=== PATIENT | female | born 1985 ===

== ENCOUNTER 2017-06-27 21:43 | Inpatient (IN) | payer MEDICARE, MEDICAID ==
[2017-06-27 21:43] VITALS: BMI 30.9
--- NOTE | 2017-06-27 22:03 | C.PDOC ---
History Of Present Illness Patient presents to the ER with a complaint of chest pain and palpitations that began today. Patient states she felt her heart beat was irregular. Patient is currently speaking in complete sentences; denies SOB, fever, chills, nausea, or vomiting. Time Seen by Provider: 06/27/17 22:03 Chief Complaint (Nursing): Chest Pain History Per: Patient History/Exam Limitations: no limitations Onset/Duration Of Symptoms: Hrs Current Symptoms Are (Timing): Still Present Severity: Mild Pain Scale Rating Of: 4 Associated Symptoms: denies: Nausea, Dyspnea, Diaphoresis, Syncope Modifying Factors: None Exacerbating Factors: None Alleviating Factors: None Recent travel outside of the [place]: No Past Medical History Reviewed: Historical Data, Nursing Documentation, Vital Signs Vital Signs: Last Vital Signs Temp 97.8 F 06/27/17 21:55 Pulse 74 06/27/17 21:55 Resp 16 06/27/17 21:55 BP 162/108 H 06/27/17 21:55 Pulse Ox 100 06/27/17 22:37 - Medical History PMH: CAD (h/o SVT), Cardia Arrhythmia, CVA, HTN, Hyperlipidemia, Chronic Kidney Disease Surgical History: - [facility] INJECT/INFUSE NEC (06/25/14) LEFT HEART CARDIAC CATH (08/28/14) LT HEART ANGIOCARDIOGRAM (08/28/14) Family History: States: No Known Family Hx - Social History Hx Tobacco Use: No Hx Alcohol Use: No Hx Substance Use: No - Immunization History Hx Tetanus Toxoid Vaccination: No Hx Influenza Vaccination: No Hx Pneumococcal Vaccination: No Review Of Systems Constitutional: Negative for: Fever, Chills Cardiovascular: Positive for: Chest Pain, Palpitations Respiratory: Negative for: Shortness of Breath Gastrointestinal: Negative for: Nausea, Vomiting Genitourinary: Negative for: Dysuria Musculoskeletal: Negative for: Back Pain Skin: Negative for: Rash Neurological: Negative for: Weakness Psych: Negative for: Anxiety Physical Exam - Physical Exam Appears: Non-toxic Skin: Warm, Dry Head: Normacephalic Eye(s): bilateral: Normal Inspection, PERRL, EOMI Oral Mucosa: Moist Neck: Trachea Midline, Supple Chest: Symmetrical, No Tenderness Cardiovascular: Rhythm Regular, No Murmur Respiratory: No Rales, No Rhonchi, No Wheezing Gastrointestinal/Abdominal: Soft, No Tenderness Back: No CVA Tenderness Extremity: Normal ROM Extremity: Bilateral: Atraumatic, No Pedal Edema, Normal Color And Temperature Pulses: Left Dorsalis Pedis: Normal, Right Dorsalis Pedis: Normal Neurological/Psych: Oriented x3, Normal Speech, Normal Cognition Gait: Steady ED Course And Treatment - Laboratory Results Result Diagrams: 06/27/17 22:23 06/27/17 22:23 ECG: Interpreted By Me, Viewed By Me ECG Rhythm: Sinus Rhythm (74), R BBB, Nonspecific Changes (lahb) O2 Sat by Pulse Oximetry: 100 Pulse Ox Interpretation: Normal Progress Note: EKG, blood work, CXR, and urinalysis ordered. IV fluids administered. Disposition Discussed With Dr.: Marichuy Willis Comment: accepted the pt on his service and took over the care at 11:28PM Doctor Will See Patient In The: Hospital Counseled Patient/Family Regarding: Studies Performed, Diagnosis - Disposition Disposition: HOSPITALIZED Disposition Time: 23:28 Condition: FAIR Forms: [facility] (Fijian) - POA Present On Arrival: None - Clinical Impression Clinical Impression: Chest pain, Palpitations - Scribe Statement The provider has reviewed the documentation as recorded by the Scribe Zander Esteban All medical record entries made by the Scribe were at my direction and personally dictated by me. I have reviewed the chart and agree that the record accurately reflects my personal performance of the history, physical exam, medical decision making, and the department course for this patient. I have also personally directed, reviewed, and agree with the discharge instructions and disposition. Decision To Admit - Pt Status Changed To: Hospital Disposition Of: Observation - . Bed Request Type: Telemetry Admitting Physician: Marichuy Willis Patient Diagnosis: Chest pain, Palpitations
[2017-06-27] MEDS ORDERED: Sodium Chloride 0.9% 1,000 ML IV ONE (22:14)
[2017-06-27 22:30] LABS: BASO % 0.7 % (0.0-2.0); EOS % 0.5 % (0.0-4.0); HEMATOCRIT 34.1 % (34.0-47.0); LYMPH # 0.9 K/uL (1.0-4.3); LYMPH % 26.5 % (20.0-40.0); MEAN CELL VOLUME 82.4 fL (81.0-99.0); MEAN CORPUSCULAR HEMOGLOBIN 26.7 pg (27.0-31.0); MEAN CORPUSCULAR HGB CONC 32.4 g/dL (33.0-37.0); MEAN PLATELET VOLUME 8.4 fL (7.2-11.7); MONO # 0.3 K/uL (0.0-0.8); MONO % 8.7 % (0.0-10.0); RED CELL DISTRIBUTION WIDTH 15.1 % (11.5-14.5); WHITE BLOOD COUNT 3.4 K/uL (4.8-10.8)
[2017-06-27 22:37] LABS: CHLORIDE 105 mmol/L (98-107); INR 0.9
[2017-06-27 22:38] LABS: POTASSIUM 3.4 mmol/L (3.6-5.2); SODIUM 138 mmol/L (132-148)
[2017-06-27 22:40] LABS: ALKALINE PHOSPHATASE 73 U/L (38-126); AST/SGOT 35 U/L (14-36); BILIRUBIN,TOTAL 0.6 mg/dL (0.2-1.3); BLOOD UREA NITROGEN 11 mg/dL (7-17); CARBON DIOXIDE 23 mmol/L (22-30); GFR AFRICAN-AMERICAN > 60; TOTAL PROTEIN 6.7 g/dL (6.3-8.3)
[2017-06-27 22:41] LABS: ALT/SGPT 41 U/L (9-52); CALCIUM 8.8 mg/dl (8.6-10.4); GLUCOSE,RANDOM 89 mg/dL (65-105)
[2017-06-27 23:12] LABS: RBC URINE 1 /hpf (0-3); URINE BILIRUBIN NEGATIVE (NEGATIVE); URINE BLOOD 2+ (NEGATIVE); URINE COLOR Straw (YELLOW); URINE GLUCOSE (UA) NORMAL (Normal); URINE KETONE NEGATIVE (NEGATIVE); URINE LEUKOCYTE ESTERASE NEG Leu/uL (Negative); URINE PROTEIN 2+ mg/dL (NEGATIVE); URINE UROBILINOGEN NORMAL mg/dL (0.2-1.0); WBC URINE < 1 /hpf (0-5)
[2017-06-27 23:13] LABS: URINE BACTERIA RARE (<OCC)
[2017-06-28] MEDS: Oxycodone/Acetaminophen 5/325 mg Tab PO SCH ×2 (00:07→06:13)
[2017-06-28 04:43] LABS: BASO % 0.7 % (0.0-2.0); EOS % 1.1 % (0.0-4.0); HEMATOCRIT 33.7 % (34.0-47.0); LYMPH # 1.2 K/uL (1.0-4.3); LYMPH % 35.1 % (20.0-40.0); MEAN CORPUSCULAR HEMOGLOBIN 27.4 pg (27.0-31.0); MEAN CORPUSCULAR HGB CONC 33.1 g/dL (33.0-37.0); MEAN PLATELET VOLUME 8.4 fL (7.2-11.7); MONO # 0.3 K/uL (0.0-0.8); MONO % 9.7 % (0.0-10.0); NRBC % 0.1 % (0.0-2.0); WHITE BLOOD COUNT 3.5 K/uL (4.8-10.8)
[2017-06-28 04:50] LABS: CHLORIDE 108 mmol/L (98-107)
[2017-06-28 04:51] LABS: SODIUM 145 mmol/L (132-148)
[2017-06-28 04:53] LABS: ALKALINE PHOSPHATASE 72 U/L (38-126); ALT/SGPT 37 U/L (9-52); AST/SGOT 31 U/L (14-36); BILIRUBIN,TOTAL 0.5 mg/dL (0.2-1.3); BLOOD UREA NITROGEN 11 mg/dL (7-17); CARBON DIOXIDE 23 mmol/L (22-30); GFR AFRICAN-AMERICAN > 60; GLUCOSE,RANDOM 87 mg/dL (65-105); TOTAL PROTEIN 6.2 g/dL (6.3-8.3)
[2017-06-28 04:54] LABS: CALCIUM 8.8 mg/dl (8.6-10.4)
[2017-06-28] MEDS ORDERED: FENOFIBRATE 54 MG PO SCH (10:00)
[2017-06-28] MEDS ORDERED: Potassium Chloride 20 mEq ER Tab PO ONE (10:00)
[2017-06-28] MEDS ORDERED: HYDROXYCHLOROQUINE SULFATE PO SCH (10:00)
--- NOTE | 2017-06-28 11:36 | CP.PCM.CON ---
<Consuelo Whelan - Last Filed: 06/28/17 12:57> History of Present Illness - History of Present Illness History of Present Illness: Resident Consultation Note for Dr. Gonzalez 31 year old female with past medical history of HTN, lupus, CVA, SVT s/ p ablation, and renal insufficiency presents to the ED with chest pain and palpitations. Patient reports her chest pain had a sudden on set, located at midsternum, pressure like and non radiating. Patient also report to have irregular heart beat while having the chest pain. Patient admits to recent travel to [place] this past weekend, where she drove approximately for 2 hours. Patient denies having diaphoresis, headache, dizziness, fever, chills, shortness of breath, abdominal pain, nausea, vomiting, or diarrhea. Patient was evaluated by Dr. Gonzalez in 2013. She had a stress test which showed stress induced anterior and inferior reversible perfusion defect. Patient also underwent a cardiac cath soon after which showed normal coronaries and normal LV function. PMD: Dr. Willis PMHx: HTN, HLD, lupus, CVA, SVT s/p ablation, and renal insufficiency PSHx: , bone marrow biopsies, renal biopsy Allergy: ASA, ibuprofen Family Hx: Father-arthritis, unknown CAD and recent pacemaker placement Meds: see MAR Review of Systems - Constitutional Constitutional: As Per HPI. absent: Chills, Fever, Weakness - EENT Eyes: As Per HPI. absent: Blurred Vision Ears: As Per HPI. absent: Dizziness Nose/Mouth/Throat: As Per HPI. absent: Epistaxis, Nasal Congestion - Cardiovascular Cardiovascular: As Per HPI, Chest Pain, Rapid Heart Rate. absent: Diaphoresis, Leg Edema, Syncope - Respiratory Respiratory: As Per HPI. absent: Cough, Hemoptysis, Chest Congestion - Gastrointestinal Gastrointestinal: As Per HPI. absent: Diarrhea, Nausea, Vomiting - Genitourinary Genitourinary: As Per HPI. absent: Urinary Frequency, Urinary Hesitance - Musculoskeletal Musculoskeletal: As Per HPI. absent: Numbness, Tingling - Integumentary Integumentary: As Per HPI. absent: Dry Skin, Lesions - Neurological Neurological: As Per HPI. absent: Dizziness, Numbness, Syncope, Weakness - Psychiatric Psychiatric: As Per HPI - Endocrine Endocrine: As Per HPI - Hematologic/Lymphatic Hematologic: As Per HPI Past Patient History - Past Social History Smoking Status: Never Smoked - CARDIAC Hx Cardia Arrhythmia: Yes Hx Hypertension: Yes - PULMONARY Hx Respiratory Disorders: No - NEUROLOGICAL HX Cerebrovascular Accident: Yes (x3) - HEENT Hx HEENT Problems: No - RENAL Hx Chronic Kidney Disease: Yes - ENDOCRINE/METABOLIC Hx Systemic Lupus Erythematosus: Yes - HEMATOLOGICAL/ONCOLOGICAL Hx Blood Disorders: No - INTEGUMENTARY Hx Dermatological Problems: No - MUSCULOSKELETAL/RHEUMATOLOGICAL Hx Falls: No - GASTROINTESTINAL Hx Gastrointestinal Disorders: No - GENITOURINARY/GYNECOLOGICAL Hx Genitourinary Disorders: No - PSYCHIATRIC Hx Psychophysiologic Disorder: No Hx Substance Use: No - SURGICAL HISTORY Hx Surgeries: Yes Hx Cardiac Catheterization: Yes Hx Section: Yes (x1) - ANESTHESIA Hx Anesthesia: Yes Hx Anesthesia Reactions: No Meds Allergies/Adverse Reactions: Allergies Allergy/AdvReac Type Severity Reaction Status Date / Time aspirin Allergy Verified 04/03/16 18:27 ibuprofen [From Motrin] Allergy Verified 04/03/16 18:27 shellfish derived Allergy Verified 06/27/17 21:57 - Medications Medications: Current Medications Clopidogrel Bisulfate (Plavix) 75 mg PO DAILY [facility] Last Admin: 06/28/17 09:41 Dose: 75 mg Fenofibrate (Tricor) 48 mg PO DAILY [facility] Furosemide (Lasix) 20 mg PO DAILY [facility] Last Admin: 06/28/17 09:41 Dose: 20 mg Hydroxychloroquine Sulfate (Plaquenil) 200 mg PO DAILY [facility] Lisinopril (Zestril) 2.5 mg PO DAILY [facility] Last Admin: 06/28/17 09:41 Dose: 2.5 mg Oxycodone/Acetaminophen (Percocet 5/325 Mg Tab) 1 tab PO Q6 PRN PRN Reason: Pain, severe (8-10) Stop: 07/01/17 00:01 Pneumococcal Polyvalent Vaccine (Pneumovax 23 Vaccine) 0.5 ml IM .ONCE ONE Stop: 06/29/17 10:01 Physical Exam - Constitutional Appears: Well, Non-toxic, No Acute Distress - Head Exam Head Exam: ATRAUMATIC, NORMAL INSPECTION - Eye Exam Eye Exam: Normal appearance Pupil Exam: NORMAL ACCOMODATION - ENT Exam ENT Exam: Mucous Membranes Moist - Neck Exam Neck exam: Positive for: Normal Inspection - Respiratory Exam Respiratory Exam: Clear to Auscultation Bilateral, NORMAL BREATHING PATTERN. absent: Respiratory Distress - Cardiovascular Exam Cardiovascular Exam: REGULAR RHYTHM, +S1, +S2 - GI/Abdominal Exam GI & Abdominal Exam: Normal Bowel Sounds, Soft. absent: Tenderness - Extremities Exam Extremities exam: Positive for: normal inspection - Neurological Exam Neurological exam: Alert, Oriented x3 - Psychiatric Exam Psychiatric exam: Normal Affect, Normal Mood - Skin Skin Exam: Normal Color, Warm Results - Vital Signs Recent Vital Signs: Last Vital Signs Temp 98 F 06/28/17 08:18 Pulse 67 06/28/17 08:18 Resp 20 06/28/17 08:18 BP 130/91 H 06/28/17 09:41 Pulse Ox 98 06/28/17 08:18 - Labs Result Diagrams: 06/28/17 04:35 06/28/17 04:35 Labs: Laboratory Results - last 24 hr 06/28/17 06/28/17 04:35 04:35 WBC 3.5 L RBC 4.06 Hgb 11.1 Hct 33.7 L MCV 83.0 MCH 27.4 MCHC 33.1 RDW 15.0 H Plt Count 140 MPV 8.4 Neut % (Auto) 53.4 Lymph % (Auto) 35.1 [place] % (Auto) 9.7 Eos % (Auto) 1.1 Baso % (Auto) 0.7 Neut # 1.9 Lymph # 1.2 [place] # 0.3 Eos # 0.0 Baso # 0.0 Sodium 145 Potassium 3.0 L Chloride 108 H Carbon Dioxide 23 Anion Gap 17 BUN 11 Creatinine 0.7 Est GFR ( Amer) > 60 Est GFR (Non-Af Amer) > 60 Random Glucose 87 Calcium 8.8 Total Bilirubin 0.5 AST 31 ALT 37 Alkaline Phosphatase 72 Total Creatine Kinase 91 CK-MB (Mass) 0.53 Troponin I, Quant 0.0150 Total Protein 6.2 L Albumin 3.1 L Globulin 3.1 Albumin/Globulin Ratio 1.0 Assessment & Plan - Assessment and Plan (Free Text) Assessment: Palpitation -S/P catheter ablation for SVT -Consider outpatient LINQ cardiac monitoring -Follow up TSH and D-dimer Chest pain, resolved -EKG NSR at 74bpm, no acute ST changes -Troponin negative -Cardiac cath in 2013, normal coronaries and normal LV function -Continue plavix -medical management HLD -Continue Tricor HTN -Continue lisinopril Case discussed with attending Dr. Gonzalez <Wilton Gonzalez - Last Filed: 06/28/17 22:39> Meds - Medications Medications: Current Medications Clopidogrel Bisulfate (Plavix) 75 mg PO DAILY [facility] Last Admin: 06/28/17 09:41 Dose: 75 mg Fenofibrate (Tricor) 48 mg PO DAILY [facility] Last Admin: 06/28/17 12:22 Dose: 48 mg Furosemide (Lasix) 20 mg PO DAILY [facility] Last Admin: 06/28/17 09:41 Dose: 20 mg Hydroxychloroquine Sulfate (Plaquenil) 200 mg PO DAILY [facility] Last Admin: 06/28/17 12:22 Dose: 200 mg Lisinopril (Zestril) 2.5 mg PO DAILY [facility] Last Admin: 06/28/17 09:41 Dose: 2.5 mg Oxycodone/Acetaminophen (Percocet 5/325 Mg Tab) 1 tab PO Q6 PRN PRN Reason: Pain, severe (8-10) Stop: 07/01/17 00:01 Last Admin: 06/28/17 21:55 Dose: 1 tab Pneumococcal Polyvalent Vaccine (Pneumovax 23 Vaccine) 0.5 ml IM .ONCE ONE Stop: 06/29/17 10:01 Results - Vital Signs Recent Vital Signs: Last Vital Signs Temp 98.3 F 06/28/17 16:00 Pulse 70 06/28/17 18:00 Resp 18 06/28/17 16:00 BP 128/87 06/28/17 16:00 Pulse Ox 98 06/28/17 16:00 - Labs Result Diagrams: 06/28/17 04:35 06/28/17 04:35 Labs: Laboratory Results - last 24 hr 06/28/17 06/28/17 06/28/17 04:35 04:35 13:47 WBC 3.5 L RBC 4.06 Hgb 11.1 Hct 33.7 L MCV 83.0 MCH 27.4 MCHC 33.1 RDW 15.0 H Plt Count 140 MPV 8.4 Neut % (Auto) 53.4 Lymph % (Auto) 35.1 [place] % (Auto) 9.7 Eos % (Auto) 1.1 Baso % (Auto) 0.7 Neut # 1.9 Lymph # 1.2 [place] # 0.3 Eos # 0.0 Baso # 0.0 D-Dimer, Quantitative 620 H Sodium 145 Potassium 3.0 L Chloride 108 H Carbon Dioxide 23 Anion Gap 17 BUN 11 Creatinine 0.7 Est GFR ( Amer) > 60 Est GFR (Non-Af Amer) > 60 Random Glucose 87 Calcium 8.8 Total Bilirubin 0.5 AST 31 ALT 37 Alkaline Phosphatase 72 Total Creatine Kinase 91 CK-MB (Mass) 0.53 Troponin I, Quant 0.0150 Total Protein 6.2 L Albumin 3.1 L Globulin 3.1 Albumin/Globulin Ratio 1.0 TSH 3rd Generation 06/28/17 13:47 WBC RBC Hgb Hct MCV MCH MCHC RDW Plt Count MPV Neut % (Auto) Lymph % (Auto) [place] % (Auto) Eos % (Auto) Baso % (Auto) Neut # Lymph # [place] # Eos # Baso # D-Dimer, Quantitative Sodium Potassium Chloride Carbon Dioxide Anion Gap BUN Creatinine Est GFR ( Amer) Est GFR (Non-Af Amer) Random Glucose Calcium Total Bilirubin AST ALT Alkaline Phosphatase Total Creatine Kinase CK-MB (Mass) Troponin I, Quant Total Protein Albumin Globulin Albumin/Globulin Ratio TSH 3rd Generation 1.88 Assessment & Plan - Assessment and Plan (Free Text) Assessment: Patient seen and evaluated with the medical assembly For stress test in am as per PMD
[2017-06-28] MEDS: Oxycodone/Acetaminophen 5/325 mg Tab PO PRN (21:55)
[2017-06-29 01:07] VITALS: RESP 20
[2017-06-29] MEDS ORDERED: Aminophylline 25 mg/ml Inj ONE (07:30)
[2017-06-29] MEDS ORDERED: Pneumococcal 23-Valent Vaccine IM ONE (10:00)
--- NOTE | 2017-06-29 11:40 | CARD ---
APPROVED REPORT EKG Measurement Heart [id number] <Conclusion> Normal sinus rhythm Incomplete right bundle branch block Left anterior fascicular block Abnormal ECG
--- NOTE | 2017-06-29 17:22 | CP.PCM.PN ---
Subjective - Date & Time of Evaluation Date of Evaluation: 06/29/17 Time of Evaluation: 17:21 - Subjective Subjective: PT HAD STRESS TEST W DR. LIMA THIS MORNING AND TOLERATED WELL. DISCUSSED WITH DR. LIMA FOR D/C AND HE STILL NEEDS TO REVIEW THE STRESS TEST. PT DISCUSSED THIS WITH THE PT AND SHE IS AWARE. DR. ODONNELL OR FELLOW [facility] REPORT DEVELOPER WILL D/C TOMORROW MORNING IF STRESS TEST NEG AND CLEARED BY CARDIO. NO FURTHER ORDERS AT THIS TIME. Objective - Vital Signs/Intake and Output Vital Signs (last 24 hours): Temp Pulse Resp BP Pulse Ox 98.4 F 80 20 123/93 H 100 06/29/17 15:00 06/29/17 15:00 06/29/17 15:00 06/29/17 15:00 06/29/17 15:00 - Medications Medications: Current Medications Clopidogrel Bisulfate (Plavix) 75 mg PO DAILY [facility] Last Admin: 06/29/17 11:26 Dose: 75 mg Fenofibrate (Tricor) 48 mg PO DAILY [facility] Last Admin: 06/29/17 11:26 Dose: 48 mg Furosemide (Lasix) 20 mg PO DAILY [facility] Last Admin: 06/29/17 11:26 Dose: 20 mg Hydroxychloroquine Sulfate (Plaquenil) 200 mg PO DAILY [facility] Last Admin: 06/29/17 11:26 Dose: 200 mg Lisinopril (Zestril) 2.5 mg PO DAILY [facility] Last Admin: 06/29/17 11:25 Dose: 2.5 mg Oxycodone/Acetaminophen (Percocet 5/325 Mg Tab) 1 tab PO Q6 PRN PRN Reason: Pain, severe (8-10) Stop: 07/01/17 00:01 Last Admin: 06/28/17 21:55 Dose: 1 tab Pneumococcal Polyvalent Vaccine (Pneumovax 23 Vaccine) 0.5 ml IM .ONCE ONE Stop: 06/30/17 10:01 - Labs Labs: 06/28/17 04:35 06/28/17 04:35 PT 10.5 SECONDS (9.7-12.2) 06/27/17 22:23 INR 0.9 06/27/17 22:23 APTT 21 SECONDS (21-34) 06/27/17 22:23
--- NOTE | 2017-06-29 19:02 | CARD ---
APPROVED REPORT Protocol: LEXISCAN Test Type: LEXISCAN STRESS Test Indications: CHEST PAIN Target HR: 189 bpm Resting Heart Rate: 74 bpm Resting Blood Pressure: 124/80mmHg submaximum (85%): 161 bpm TEST SUMMARY [id number]/80.0. INFUSIONDOSE 100:300.00.01.071/.0. [id number]/80.0. PROCEDURE Pharmacologic stress testing was performed using 0.4mg per 5ml of regadenoson given intravenously over 7-10 seconds. POST EXERCISE Reason for Termination: Lexiscan protocol completed Target HR: No Max HR: 71 bpm 55% of Maximum Predicted HR: 189 bpm Exercise duration: 00:30 min:sec, 0 Stage Exercise capacity: 1.0METs Max Blood Pressure: 124/80mmHg Blood Pressure response to exercise: normal resting BP - appropriate response Heart Rate response to exercise: appropriate Chest Pain: No, none Angina index: 0 Arrhythmia: No, none ST Change: No, none Deviation: 0 mm INTERPRETATION Stress EKG Conclusion: Nuclear report to follow EXAM: Myocardial Perfusion REST/STRESS Imaging Protocol The imaging protocol used to acquire images was Rest Tc-99m/stress Tc-99m 1 day Rest Spect myocardial perfusion imaging was performed in supine position 41 minutes following the injection of 13.1 mCi of Tc-99 Myoview. Gated Stress Spect was performed 40 minutes after intravenous 33 mCi Tc-99 Myoview injection. The images were gated to evaluate regional wall motion and calculate ventricular ejection fraction.Images were reconstructed using backfilter projection method in short horizontal and verticle long axis. Spect slices were generated. RESTING DATA EDV91.82puDB9.70L/min1/3 Pk. Filling Rate1.01EDV/sec LV Time to Pk. Filling Zgvt724.71msec ESV22.00mlMyocardial Xazb470.00gLV Time to Pk. Ejection Qbod296.56msec Pk. Fill Rate2.54EDV/secAv. Heart Rate67.00bpm EF76.00%Pk. Emptying Rate3.33ESV/sec STRESS DATA EDV89.55ueHR1.10L/min ESV18.00mlMyocardial Tpbm328.00g Pk. Fill Rate2.41EDV/sec EF80.00%Pk. Emptying Rate3.04ESV/sec 1/3 Pk. Filling Rate1.46EDV/secRegional WT score at stress:0.00 LV Time to Pk. Filling Rate:213.34msecRegional WM score at stress:0.00 LV Time to Pk. Ejection Rate:177.10msecSummed WT score at stress:0.00 Av. Heart Rate72.00bpmSummed WM score at stress:0.00 LV Perf. Quant 17 Seg. SSS1.00 17 Seg. SRS1.00 17 Seg. SDS1.00 Stress Defect Extent (% LAD)0.00Rest Defect Extent (% LAD)0.00Rev. Defect Extent (% LAD)0.00 Stress Defect Extent (% LCX)7.50Rest Defect Extent (% LCX)5.00Rev. Defect Extent (% LCX)6.30 Stress Defect Extent (% RCA)0.00Rest Defect Extent (% RCA)0.00Rev. Defect Extent (% RCA)0.00 Stress Defect Extent (% CLEO)1.30Rest Defect Extent (% CLEO)0.90Rev. Defect Extent (% CLEO)1.10 Other Information Quality:Good IMPRESSION Normal Myocardial Perfusion exercise stress study Left Ventricle LV Size/Shape: The left ventricle is normal size. LV Function:Left ventricle systolic function is normal. The Ejection Fraction is >70%. Metabolism/Perfusion There are no perfusion/metabolism defects. Conclusion 1. Normal Lexiscan Nuclear stress test.
[2017-06-29] MEDS: Oxycodone/Acetaminophen 5/325 mg Tab PO PRN (22:32)
--- NOTE | 2017-06-29 23:31 | CP.PCM.PN ---
Subjective - Date & Time of Evaluation Date of Evaluation: 06/29/17 Time of Evaluation: 17:35 - Subjective Subjective: Normal stress test Out patient f/u in 4 weeks for further eval Objective - Vital Signs/Intake and Output Vital Signs (last 24 hours): Temp Pulse Resp BP Pulse Ox 98.4 F 72 20 123/93 H 100 06/29/17 15:00 06/29/17 17:00 06/29/17 15:00 06/29/17 15:00 06/29/17 15:00 Intake and Output: 06/29/17 06/30/17 18:59 06:59 Intake Total 500 Balance 500 - Medications Medications: Current Medications Clopidogrel Bisulfate (Plavix) 75 mg PO DAILY [facility] Last Admin: 06/29/17 11:26 Dose: 75 mg Fenofibrate (Tricor) 48 mg PO DAILY [facility] Last Admin: 06/29/17 11:26 Dose: 48 mg Furosemide (Lasix) 20 mg PO DAILY [facility] Last Admin: 06/29/17 11:26 Dose: 20 mg Hydroxychloroquine Sulfate (Plaquenil) 200 mg PO DAILY [facility] Last Admin: 06/29/17 11:26 Dose: 200 mg Lisinopril (Zestril) 2.5 mg PO DAILY [facility] Last Admin: 06/29/17 11:25 Dose: 2.5 mg Oxycodone/Acetaminophen (Percocet 5/325 Mg Tab) 1 tab PO Q6 PRN PRN Reason: Pain, severe (8-10) Stop: 07/01/17 00:01 Last Admin: 06/29/17 22:32 Dose: 1 tab Pneumococcal Polyvalent Vaccine (Pneumovax 23 Vaccine) 0.5 ml IM .ONCE ONE Stop: 06/30/17 10:01 - Labs Labs: PT 10.5 SECONDS (9.7-12.2) 06/27/17 22:23 INR 0.9 06/27/17 22:23 APTT 21 SECONDS (21-34) 06/27/17 22:23
[2017-06-30 02:11] VITALS: TEMP 98.1; O2SAT 98
[2017-06-30] MEDS ORDERED: Pneumococcal 23-Valent Vaccine IM ONE (10:00)
--- NOTE | 2017-06-30 10:01 | CP.PCM.PN ---
Subjective - Date & Time of Evaluation Date of Evaluation: 06/30/17 Time of Evaluation: 10:00 - Subjective Subjective: RN ORTHOPAEDIC NOTES Patient seen today denies any complaints . 31 yr old female with pmhX OF HTN, HLD, lupus, CVA, SVT s/p ablation, and renal insufficiency admitted for chest pain and palpitations troponinx 3 - negative s/p stress test -Normal stress test Dr. Gonzalez cleared for discharge home from cardiology standpoint and f/u in his office in [address] Willis today , cleared for discharge home today an d f/u with Dr. Sultana office in 1 week discharge plan discussed with pateint who understands and agrees with plan Patient instructed to returns to ED if symptoms returns or any other concerning symptoms Objective - Vital Signs/Intake and Output Vital Signs (last 24 hours): Temp Pulse Resp BP Pulse Ox 98.1 F 77 20 116/81 98 06/30/17 07:09 06/30/17 07:09 06/30/17 07:09 06/30/17 07:09 06/30/17 07:09 Intake and Output: 06/30/17 06/30/17 06:59 18:59 Intake Total 500 Balance 500 - Medications Medications: Current Medications Clopidogrel Bisulfate (Plavix) 75 mg PO DAILY [facility] Last Admin: 06/29/17 11:26 Dose: 75 mg Fenofibrate (Tricor) 48 mg PO DAILY [facility] Last Admin: 06/29/17 11:26 Dose: 48 mg Furosemide (Lasix) 20 mg PO DAILY [facility] Last Admin: 06/29/17 11:26 Dose: 20 mg Hydroxychloroquine Sulfate (Plaquenil) 200 mg PO DAILY [facility] Last Admin: 06/29/17 11:26 Dose: 200 mg Lisinopril (Zestril) 2.5 mg PO DAILY [facility] Last Admin: 06/29/17 11:25 Dose: 2.5 mg Oxycodone/Acetaminophen (Percocet 5/325 Mg Tab) 1 tab PO Q6 PRN PRN Reason: Pain, severe (8-10) Stop: 07/01/17 00:01 Last Admin: 06/29/17 22:32 Dose: 1 tab Pneumococcal Polyvalent Vaccine (Pneumovax 23 Vaccine) 0.5 ml IM .ONCE ONE Stop: 06/30/17 10:01 - Labs Labs: PT 10.5 SECONDS (9.7-12.2) 06/27/17 22:23 INR 0.9 06/27/17 22:23 APTT 21 SECONDS (21-34) 06/27/17 22:23
[2017-06-30] MEDS: Oxycodone/Acetaminophen 5/325 mg Tab PO PRN (10:07)
[2017-06-30 10:08] VITALS: BP 130/89
[2017-06-30 10:33] VITALS: PULSE 67
== END 2017-06-30 10:55 | disposition home or self-care (01) | DRG 310 ==
LOC: C.ER 21:43 → C.5T 23:27 → C.9E 23:27 → OBSVTOIN 06-29 17:22
PROVIDERS: ADMIT Internal Medicine; ATTEND Internal Medicine
DX: I47.1 Supraventricular tachycardia (principal); M32.9 Systemic lupus erythematosus, unspecified; I12.9 Hypertensive chronic kidney disease with stage 1 through stage 4 chronic kidney disease, or unspecified chronic kidney disease; N18.9 Chronic kidney disease, unspecified; E78.5 Hyperlipidemia, unspecified; I25.10 Atherosclerotic heart disease of native coronary artery without angina pectoris; Z86.73 Personal history of transient ischemic attack (TIA), and cerebral infarction without residual deficits

== ENCOUNTER 2017-11-29 01:39 | Emergency (ER) | payer MEDICARE, MEDICAID ==
[2017-11-29 01:40] VITALS: BMI 30.9
[2017-11-29] MEDS ORDERED: Sodium Chloride 0.9% 1,000 ML IV ONE (02:01)
--- NOTE | 2017-11-29 02:03 | C.PDOC ---
History Of Present Illness 32 year old female presents to the ER with a complaint of left flank pain that began tonight, associated with dysuria. Denies diarrhea. Patient reports a Hx of kidney stones 14 years ago. Chief Complaint (Nursing): Abdominal Pain History Per: Patient History/Exam Limitations: no limitations Onset/Duration Of Symptoms: Hrs Current Symptoms Are (Timing): Still Present Location Of Pain/Discomfort: Other (Left flank) Radiation Of Pain To:: None Quality Of Discomfort: Unable To Describe Associated Symptoms: Other (Dysuria). denies: Diarrhea Exacerbating Factors: None Alleviating Factors: None Recent travel outside of the [place]: No Past Medical History Reviewed: Historical Data, Nursing Documentation, Vital Signs Vital Signs: Last Vital Signs Temp 98.1 F 11/29/17 04:10 Pulse 78 11/29/17 04:10 Resp 20 11/29/17 04:10 BP 128/90 11/29/17 04:10 Pulse Ox 100 11/29/17 04:10 - Medical History PMH: CAD (h/o SVT), Cardia Arrhythmia, CVA, HTN, Hyperlipidemia, Chronic Kidney Disease Surgical History: - [facility] Procedures INJECT/INFUSE NEC (06/25/14) LEFT HEART CARDIAC CATH (08/28/14) LT HEART ANGIOCARDIOGRAM (08/28/14) Family History: States: Unknown Family Hx - Social History Hx Tobacco Use: No Hx Alcohol Use: No Hx Substance Use: No - Immunization History Hx Tetanus Toxoid Vaccination: No Hx Influenza Vaccination: Yes Hx Pneumococcal Vaccination: No Review Of Systems Constitutional: Negative for: Fever, Chills Gastrointestinal: Negative for: Diarrhea Genitourinary: Positive for: Dysuria Musculoskeletal: Positive for: Back Pain (Left flank pain) Physical Exam - Physical Exam Appears: Non-toxic, Other (Mild distress) Skin: Normal Color, Warm, Dry Head: Atraumatic, Normacephalic Eye(s): bilateral: Normal Inspection Oral Mucosa: Moist Chest: Symmetrical, No Tenderness Cardiovascular: Rhythm Regular Respiratory: Normal Breath Sounds, No Rales, No Rhonchi, No Wheezing Gastrointestinal/Abdominal: Soft, No Tenderness Back: CVA Tenderness (left), Paraspinal Tenderness (Left anterior lumbar) Neurological/Psych: Oriented x3, Normal Speech ED Course And Treatment - Laboratory Results Result Diagrams: 11/29/17 02:15 11/29/17 02:15 O2 Sat by Pulse Oximetry: 100 (Room air) Pulse Ox Interpretation: Normal Progress Note: CT abd/pel, blood work, and urinalysis ordered. IV fluids and tramadol administered. Disposition Counseled Patient/Family Regarding: Diagnosis - Disposition Referrals: [facility] at [facility] [Outside] Nohemi Vinson MD [Staff Provider] - Disposition: HOME/ ROUTINE Disposition Time: 04:38 Condition: STABLE Prescriptions: Ciprofloxacin [Cipro] 1 tab PO BID #14 tab traMADol/Acetaminophen [Ultracet 325 MG-37.5 MG] 1 tab PO Q6 #14 tab Instructions: Urinary Tract Infection in Women (DC), Renal Colic (GEN) Forms: [employer] ([place] Citizen) - POA Present On Arrival: None - Clinical Impression Clinical Impression: Urinary tract infection, Renal colic on left side - Scribe Statement The provider has reviewed the documentation as recorded by the Scribxander Esteban All medical record entries made by the Scribe were at my direction and personally dictated by me. I have reviewed the chart and agree that the record accurately reflects my personal performance of the history, physical exam, medical decision making, and the department course for this patient. I have also personally directed, reviewed, and agree with the discharge instructions and disposition.
[2017-11-29] MEDS ORDERED: Sodium Chloride 0.9% 1,000 ML ONE (02:15)
[2017-11-29 02:24] LABS: BASO % 0.4 % (0.0-2.0); EOS % 0.2 % (0.0-4.0); HEMOGLOBIN 11.5 g/dL (11.0-16.0); LYMPH # 1.2 K/uL (1.0-4.3); LYMPH % 15.8 % (20.0-40.0); MEAN CELL VOLUME 92.8 fL (81.0-99.0); MEAN CORPUSCULAR HEMOGLOBIN 31.7 pg (27.0-31.0); MEAN CORPUSCULAR HGB CONC 34.1 g/dL (33.0-37.0); MEAN PLATELET VOLUME 9.1 fL (7.2-11.7); MONO # 0.6 K/uL (0.0-0.8); MONO % 8.2 % (0.0-10.0); NEUT # 5.6 K/uL (1.8-7.0); NEUT % 75.4 % (50.0-75.0); RBC 3.64 Mil/uL (3.80-5.20); RED CELL DISTRIBUTION WIDTH 14.4 % (11.5-14.5); WHITE BLOOD COUNT 7.4 K/uL (4.8-10.8)
[2017-11-29 02:31] LABS: SQUAMOUS EPITHIAL 6 /hpf (0-5); URINE BILIRUBIN NEGATIVE (NEGATIVE); URINE BLOOD 2+ (NEGATIVE); URINE CLARITY Hazy (Clear); URINE COLOR Yellow (YELLOW); URINE GLUCOSE (UA) NORMAL (Normal); URINE LEUKOCYTE ESTERASE 1+ Leu/uL (Negative); URINE NITRATE NEGATIVE (NEGATIVE); URINE PROTEIN 3+ mg/dL (NEGATIVE); URINE UROBILINOGEN NORMAL mg/dL (0.2-1.0)
[2017-11-29 02:32] LABS: HCG,QUALITATIVE URINE NEGATIVE (NEGATIVE)
[2017-11-29 02:43] LABS: ALB/GLOB RATIO 1.1 (1.0-2.1); ALBUMIN 4.1 g/dL (3.5-5.0); CALCIUM 9.5 mg/dl (8.6-10.4); GFR AFRICAN-AMERICAN > 60; GFR NON-AFRICAN AMERICAN > 60; LIPASE 46 U/L (23-300)
[2017-11-29 02:45] LABS: ALT/SGPT 28 U/L (9-52); AST/SGOT 39 U/L (14-36); BLOOD UREA NITROGEN 14 mg/dL (7-17)
[2017-11-29] MEDS ORDERED: Ciprofloxacin 400mg/200ml D5W 400 MG/200 ML BAG IVPB STA (03:34)
--- NOTE | 2017-11-29 04:27 | CT ---
EXAM: CT Abdomen and Pelvis Without Intravenous Contrast EXAM DATE/TIME: 11/29/2017 2:03 AM CLINICAL HISTORY: 32 years old, female; Pain; Abdominal pain; Additional info: Left flank pain TECHNIQUE: Axial computed tomography images of the abdomen and pelvis without intravenous contrast. All CT scans at this facility use one or more dose reduction techniques, viz.: automated exposure control; ma/kV adjustment per patient size (including targeted exams where dose is matched to indication; i.e. head); or iterative reconstruction technique. Coronal and sagittal reformatted images were created and reviewed. COMPARISON: No relevant prior studies available. FINDINGS: LIMITATIONS: Mild streak/motion artifact. LOWER THORAX: No infiltrate seen in the lung bases. ABDOMEN: LIVER: No acute abnormality of the liver identified. GALLBLADDER AND BILE DUCTS: No CT evidence of acute cholecystitis. No evidence of significant biliary ductal dilatation. PANCREAS: No CT evidence of acute pancreatitis. SPLEEN: No acute abnormality of the spleen identified. ADRENALS: No acute abnormality of the adrenal glands identified. KIDNEYS AND URETERS: Mild stranding of the fat adjacent to the left ureter is seen. No evidence of significant hydroureteronephrosis. No renal or ureteral stones visualized. STOMACH AND BOWEL: Scattered colonic diverticulosis, without evidence of diverticulitis. Otherwise, no significant abnormality of the bowel is identified. No acute abnormality of the stomach or duodenum identified. No evidence of small bowel obstruction. APPENDIX: Appendix is seen, and is within normal limits in appearance. PELVIS: BLADDER: Mild thickening of the bladder wall. REPRODUCTIVE: Bilateral cystic ovarian lesions. The larger, located on the left, measures 5.6 cm, and has an overall CT attenuation of 20 Hounsfield units, mildly higher than expected for simple cyst. This could represent a mildly complex cystic lesion. Followup pelvic ultrasound is recommended for further evaluation, not necessarily on an emergent basis. ABDOMEN and PELVIS: INTRAPERITONEAL SPACE: Small amount of free fluid in the cul-de-sac. This is most likely physiologic in nature. No evidence of free air. BONES/JOINTS: Findings in the femoral heads bilaterally which are highly suspicious for bilateral avascular necrosis. There are curvilinear areas of sclerosis in the femoral heads bilaterally. SOFT TISSUES: No acute abnormality of the visualized soft tissues is seen. VASCULATURE: No evidence of abdominal aortic aneurysm. No evidence of periaortic hemorrhage. LYMPH NODES: No evidence of diffuse lymphadenopathy. IMPRESSION: - Mild stranding of the fat adjacent to the left ureter, with no causative obstructing stone identified or significant hydroureteronephrosis. Findings could be due to a recently passed stone. A left sided urinary tract infection could also have this appearance. Recommend clinical correlation. - Mild bladder wall thickening. This is a nonspecific finding, but can be seen with cystitis. Recommend clinical correlation. - Otherwise, no evidence of significant acute process. - Findings in the femoral heads bilaterally which are highly suspicious for bilateral avascular necrosis. - Bilateral cystic ovarian lesions, the larger, on the left measuring 5.6 cm. See recommendations above. - See above for remaining findings.
[2017-11-29] MEDS ORDERED: Morphine 4 MG/ML VIAL ONE (04:38)
[2017-11-29 05:51] VITALS: BP 129/86; PULSE 81; RESP 17; TEMP 98.3; O2SAT 97
== END 2017-11-29 05:51 | disposition home or self-care (01) ==
LOC: C.ER 01:39
DX: N39.0 Urinary tract infection, site not specified (principal); N20.0 Calculus of kidney
CPT/HCPCS: 74176; 80053; 81001; 83690; 84703; 85025; 87086; 96365; 96375; 99285; J0744; J2270; J7040

== ENCOUNTER 2017-12-01 01:20 | Emergency (ER) | payer MEDICARE, MEDICAID ==
[2017-12-01 01:20] VITALS: BMI 30.9
[2017-12-01 01:56] VITALS: O2SAT 100
[2017-12-01] MEDS ORDERED: Ofloxacin 0.3% Otic Soln AS STA (02:35)
--- NOTE | 2017-12-01 03:21 | C.PDOC ---
History Of Present Illness Patient is a 32 y/o female, with Hx of Lupus and nephrolithiasis, who presents to the ED with complaints of pain in left ear and sore on tongue for the last few days. Patient reports left ear pain subsided with use of Tylenol, but returned today. Upon searching symptoms on Google, patient expressed concern with possibility of oral cancer, prompting visit. Patient notes headache and use of antibiotics for prior kidney stones. No other physical complaints at this time. Time Seen by Provider: 12/01/17 02:22 Chief Complaint (Nursing): ENT Problem History Per: Patient History/Exam Limitations: None Onset/Duration Of Symptoms: Days (few days), Intermittent Episodes Current Symptoms Are (Timing): Still Present Quality (Ear): Pain W/Touch Quality (Mouth/Throat): Other (sore on tongue) Symptoms Have Been: Episodic Anticoagulant/Antiplatlet Use?: No Past Medical History Reviewed: Historical Data, Nursing Documentation, Vital Signs Vital Signs: Last Vital Signs Temp 98.2 F 12/01/17 03:45 Pulse 80 12/01/17 03:45 Resp 16 12/01/17 03:45 BP 124/86 12/01/17 03:45 Pulse Ox 100 12/01/17 03:45 - Medical History PMH: CAD (h/o SVT), Cardia Arrhythmia, CVA, HTN, Hyperlipidemia, Kidney Stones, Chronic Kidney Disease Other PMH: Lupus Surgical History: No Surg Hx, - [facility] Procedures INJECT/INFUSE NEC (06/25/14) LEFT HEART CARDIAC CATH (08/28/14) LT HEART ANGIOCARDIOGRAM (08/28/14) Family History: States: No Known Family Hx - Social History Hx Tobacco Use: No Hx Alcohol Use: No Hx Substance Use: No - Immunization History Hx Tetanus Toxoid Vaccination: No Hx Influenza Vaccination: Yes Hx Pneumococcal Vaccination: No Review Of Systems Constitutional: Negative for: Fever, Chills ENT: Positive for: Ear Pain (left ear pain), Mouth Pain (sore on tongue) Physical Exam - Physical Exam Appears: Well, Non-toxic, No Acute Distress Skin: Normal Color, Warm, No Rash Head: Atraumatic, Normacephalic Eye(s): bilateral: Normal Inspection, PERRL, EOMI Ear(s): Left: Other (tenderness with pushing of the tragus), Right: Normal Oral Mucosa: Moist Tongue: Lesions (<0.5cm aphthous ulcer to left side of tongue) Teeth: Normal Dentition Gingiva: Normal Appearing Throat: Normal, No Erythema, No Exudate Neck: Normal ROM, Supple Chest: Symmetrical, No Tenderness Cardiovascular: No Friction Rub, No Murmur Respiratory: No Rhonchi, No Wheezing Gastrointestinal/Abdominal: Soft, No Tenderness Back: Normal Inspection, No CVA Tenderness Extremity: Normal ROM, No Tenderness, No Swelling Neurological/Psych: Oriented x3, Normal Speech, Normal Motor, Normal Sensation Disoriented To: Place Gait: Steady ED Course And Treatment O2 Sat by Pulse Oximetry: 100 (on RA) Pulse Ox Interpretation: Normal Progress Note: Tylenol and Floxin adminsitered. On re-eval, patient is resting comfortably and stable for discharge. Medication instructions discussed with patient and patient agrees upon discharge. Medical Decision Making Medical Decision Making: The lesion on the side of the tongue is indicative of a canker sore and no evidence or oral cancer at this time. Disposition - Disposition Referrals: Avelino Hummel MD [Staff Provider] - Disposition: HOME/ ROUTINE Disposition Time: 03:32 Condition: GOOD Additional Instructions: Follow up with the medical doctor within 1-2 days without fail. Return if worsened. Prescriptions: Acetaminophen [Tylenol] 325 mg PO Q6 PRN #30 tab PRN Reason: Pain, Mild (1-3) Ciprofloxacin/Hydrocortisone [Cipro Hc Otic Suspension] 4 drop BID #10 ml Instructions: Otitis Externa (ED) Forms: [employer] ([place]) - Clinical Impression Clinical Impression: Otitis externa, Canker sore - Scribe Statement The provider has reviewed the documentation as recorded by the Scribxander Abel All medical record entries made by the Scribe were at my direction and personally dictated by me. I have reviewed the chart and agree that the record accurately reflects my personal performance of the history, physical exam, medical decision making, and the department course for this patient. I have also personally directed, reviewed, and agree with the discharge instructions and disposition.
[2017-12-01 03:47] VITALS: BP 124/86; PULSE 80; RESP 16; TEMP 98.2
== END 2017-12-01 03:48 | disposition home or self-care (01) ==
LOC: C.ER 01:20
DX: H60.92 Unspecified otitis externa, left ear (principal); K12.0 Recurrent oral aphthae